=== PATIENT | female | born 1990 | race Caucasian/White ===

== ENCOUNTER 2016-11-13 15:49 | Inpatient (IN) | payer OTHER, MEDICAID ==
[2016-11-13 18:23] LABS: APPEARANCE,URINE SLIGHTLY-CLOUDY; BILIRUBIN,URINE NEGATIVE (NEGATIVE); GLUCOSE, URINE NEGATIVE (NEGATIVE); KETONES,URINE NEGATIVE (NEGATIVE); LEUKOCYTE ESTERASE,URINE TRACE (NEGATIVE); NITRITE,URINE NEGATIVE (NEGATIVE); PROTEIN,URINE NEGATIVE (NEGATIVE); UROBILINOGEN,URINE NEGATIVE mg/dL (<2.0)
[2016-11-13] MEDS ORDERED: RINGERS SOLUTION,LACTATED 1,000 ML IV PRN (18:33)
[2016-11-13 18:38] LABS: URINE BARBITURATES SCREEN NEGATIVE; URINE METHADONE SCREEN NEGATIVE; URINE OPIATES LOW NEGATIVE; URINE PHENCYCLIDINE SCREEN NEGATIVE
[2016-11-13 19:10] LABS: ABSOLUTE BASOPHILS # (AUTO) 0.1 10^3/uL (0.0-0.2); ABSOLUTE EOSINOPHILS # (AUTO) 0.1 10^3/uL (0.0-0.6); ABSOLUTE MONOCYTES (AUTO) 0.8 10^3/uL (0.1-1.4); ABSOLUTE NEUT (AUTO) 13.3 10^3/uL (1.7-8.2); BASOPHILS % (AUTO) 0.7 % (0-2); EOSINOPHILS % (AUTO) 0.5 % (0-6); HEMATOCRIT 34.3 % (36.0-47.0); HEMOGLOBIN 11.8 g/dL (12.0-15.5); HGB HCT DIFFERENCE 1.1; LYMPHOCYTES % (AUTO) 17.2 % (13-45); MEAN CORPUSCULAR HEMOGLOBIN 29.5 pg (27.0-33.4); MEAN CORPUSCULAR HGB CONC 34.4 g/dL (32.0-36.0); MEAN CORPUSCULAR VOLUME 86 fl (80-97); MONOCYTES % (AUTO) 4.7 % (3-13); RED CELL DISTRIBUTION WIDTH 14.2 % (11.5-14.0); SEGMENTED NEUTROPHILS % (AUTO) 76.9 % (42-78); WHITE BLOOD COUNT 17.2 10^3/uL (4.0-10.5)
[2016-11-13] MEDS ORDERED: OXYTOCIN/NORMAL SALINE 20 UNIT/1,000 ML RTUINJ ONE (19:22)
[2016-11-13] MEDS ORDERED: MISOPROSTOL 0.2 MG TABLET ONE (19:22)
[2016-11-13] MEDS ORDERED: LIDOCAINE 1% INJ-PF (10 MG/ML) 30 ML SDV ONE (19:22)
[2016-11-13] MEDS ORDERED: NALBUPHINE HCL INJ 10 MG/1 ML AMPULE INJ ONE (21:19)
[2016-11-13] MEDS ORDERED: ONDANSETRON HCL INJ/PF 4 MG/2 ML SDV IV ONE (21:19)
[2016-11-13] MEDS ORDERED: NALBUPHINE HCL INJ 10 MG/1 ML AMPULE ONE (21:22)
[2016-11-13] MEDS ORDERED: ONDANSETRON HCL INJ/PF 4 MG/2 ML SDV ONE (21:22)
[2016-11-13] MEDS ORDERED: DIPHENHYDRAMINE HCL 50 MG/ML VIAL IV ONE (21:37)
[2016-11-13] MEDS ORDERED: DIPHENHYDRAMINE HCL 50 MG/ML VIAL ONE (21:41)
[2016-11-13] MEDS ORDERED: ACETAMINOPHEN WITH CODEINE #3 TABLET PO PRN ×2 (22:23)
[2016-11-13] MEDS ORDERED: MEASLES,MUMPS&RUBELLA VACC/PF 0.5 ML VIAL SUBCUT PRN (22:23)
[2016-11-13] MEDS ORDERED: ZOLPIDEM TARTRATE 5 MG TABLET PO PRN (22:23)
[2016-11-13] MEDS ORDERED: DIPH/PERTUSS(ACELL)/TETANUS VAC/PF 0.5 ML SYR (>=10YO) IM PRN (22:23)
[2016-11-13] MEDS ORDERED: DIBUCAINE 1% OINTMENT 28 GM TP PRN (22:23)
[2016-11-13] MEDS ORDERED: BENZOCAINE/MENTHOL AEROSOL SPRAY 56 ML TOP PRN (22:23)
[2016-11-13] MEDS ORDERED: OXYTOCIN/NORMAL SALINE 1,000 ML IV PRN (22:23)
--- NOTE | 2016-11-14 00:07 | Delivery Summary ---
Del Sum A-C Datetime Report Generated by CPN: 11/14/2016 00:06 DELIVERY PERSONNEL DELIVERY PERSONNEL: [id number] Delivery Doctor:: Christiane Orellana MD Labor and Delivery Nurse:: Marcelina Connor RN Labor and Delivery Nurse:: Jolene Restrepo RN Ergonomist:: Eugenia Leger RN Nursery Nurse:: Keri Forman RN Licensed Plumber/BUSINESS CONTINUITY STRATEGY DIRECTOR: Yadira Green, ST MATERNAL INFORMATION Delivery Anesthesia: None Medications After Delivery: Pitocin Drip 20 Units/1000ml NSS Meds After Delivery Comment: Pitocin 20 unit bolus Estimated Blood Loss (ml): 200 Maternal Complications: None Other Maternal Complications: meconium Provider Comments: AROM @ [id number] with meconium present LABOR SUMMARY EDC: 11/12/2016 00:00 No. Babies in Womb: 1 Attempted: No Labor Anesthesia: IV Sedation LABOR INFORMATION Reason for Induction: Not Applicable Onset of Labor: 11/13/2016 18:19 Complete Dilatation: 11/13/2016 22:05 Oxytocin: N/A Group B Beta Strep: negative Antibiotics # of Doses: 0 Steroids Given: None Reason Steroids Not Administered: Not Applicable MEMBRANES Membranes Rupture Method: Artificial Rupture of Membranes: 11/13/2016 21:12 Length of Rupture (hr): 0.98 Amniotic Fluid Color: Moderate Meconium Amniotic Fluid Amount: Small Amniotic Fluid Odor: Normal STAGES OF LABOR Stage 1 hr: 3 Stage 1 min: 46 Stage 2 hr: 0 Stage 2 min: 6 Stage 3 hr: 0 Stage 3 min: 3 Total Time in Labor hr: 3 Total Time in Labor min: 55 VAGINAL DELIVERY Episiotomy: None Laceration Extension: N/A Laceration Type: None Sponge Count Correct: N/A Sharps Count Correct: N/A CSECTION DELIVERY Primary Indication: N/A BABY A INFORMATION Infant Delivery Date/Time: 11/13/2016 22:11 Method of Delivery: Vaginal Born in Route : No : N/A Forceps: N/A Vacuum Extraction: N/A Shoulder Dystocia : No PRESENTATION/POSITION BABY A Presentation: Cephalic Cephalic Presentation: Vertex Vertex Position: Left Occipital Anterior Breech Presentation: N/A PLACENTA INFORMATION BABY A Placenta Delivery Time : 11/13/2016 22:14 Placenta Method of Delivery: Spontaneous Placenta Status: Delivered SCORES BABY A Heart Rate 1 min: >100 bpm Resp Effort 1 min: Slow, Irregular Reflex Irritability 1 min: Cough or Sneeze or Pulls Away Muscle Tone 1 min: Some Flexion of Extremities Color 1 min: Blue/Pale Resuscitation Effort 1 min: N/A SCORE 1 MIN: 6 Heart Rate 5 min: >100 bpm Resp Effort 5 min: Good Cry Reflex Irritability 5 min: Cough or Sneeze or Pulls Away Muscle Tone 5 min: Active Motion Color 5 min: Body [place], Extremities Blue Resuscitation Effort 5 min: N/A SCORE 5 MIN: 9 INFORMATION BABY A Gestational Age at Delivery: 40.1 Gestational Status: Full Term- 39- 40.6 Weeks Outcome : Liveborn Infant Condition : Stable Infant Sex: Female IDENTIFICATION BABY A Verification Date/Time: 11/13/2016 22:31 ID Band Number: [id number] Mother's Name Verified: Yes RN Verifying Infant: CYoselin Connor, RN _ S. Richtibeashivaniir, RN WEIGHT/LENGTH BABY A Birthweight (gm): 3427 Infant Weight (lb): 7 Infant Weight (oz): 9 Infant Length (in): 19.50 Length (cm): 49.53 CORD INFORMATION BABY A No. Cord Vessels: 3 Nuchal Cord : Around Neck x1, Loose Cord Blood Taken: Yes-For Eval (Mom's Blood Type - or O+) Suction: Mouth; Nose ASSESSMENT BABY A Complications: Meconium Physical Findings at Delivery: Within Normal Limits Skin to Skin: Yes Skin to Skin Time (min): 60 Assistant Press Operator/ALS Called : No Infant Care By: Trupti Forman RN Transferred To: Remains with Mother BABY B INFORMATION : N/A SIGNATURES Signature: with User ID: [email or web address]
--- NOTE | 2016-11-14 00:34 | Admission Physical ---
Datetime Report Generated by CPN: 11/14/2016 00:33 CURRENT ADMISSION Chief Complaint: Uterine Contractions Indication for Induction: Not Applicable Admit Plan: Admit to Unit; Initiate Labor Augmentation Protocol ALLERGIES Medication Allergies: No Medication Allergies: No Known Allergies (10/30/2011) Latex: No Latex Allergies OBSTETRICAL HISTORY EDC: 11/12/2016 00:00 : 2 Para: 1 Term: 1 : 0 SAB: 0 IAB: 0 Ectopic: 0 Livin Cesareans: 0 VBACs: 0 Multiple Births: 0 Gestational Diabetes: No Rh Sensitization: No Incompetent Cervix: No JANEL: No Infertility: No ART Treatment: No Uterine Anomaly: No IUGR: No Hx Previous C/S: No Macrosomia: No Hx Loss/Stillborn: No PIH: No Hx : No Placenta Previa/Abruption: No Depression/PP Depression: No PTL/PROM: No Post Hemorrhage: No Current Procedures: Ultrasound Obstetrical History Comments: G1- 39wk G2- current SEE RECORDS Alcohol: No Marijuana : No Cocaine: No Other Illicit Drugs: No Cigarettes: Former Smoker. [id number] MEDICAL HISTORY Diabetes: No Blood Transfusion: No Pulmonary Disease (Asthma, TB): No Breast Disease: No Hypertension: No Personalized Living Manager Surgery: No Heart Disease: No Hosp/Surgery: Yes Autoimmune Disorder: No Anesthetic Complications: No Kidney Disease: No Abnormal Pap Smear: No Neuro/Epilepsy: Yes Psychiatric Disorders: No Other Medical Diseases: Yes Hepatitis/Liver Disease: No Significant Family History: No Varicosities/Phlebitis: No Trauma/Violence : No Thyroid Dysfunction: No Medical History Comments: seizure disorder as a child no problems since 9y/o hydrodistention 2005 laparoscopy 2008 childbirth fibromyalgia INFECTIOUS HISTORY Gonorrhea: No Genital Herpes: No Chlamydia: No Tuberculosis: No Syphilis: No Hepatitis: No HIV/AIDS Exposure: No Rash or Viral Illness: No HPV: No PHYSICAL EXAM General: Normal HEENT: Normal Neurologic: Normal Thyroid: Normal Heart: Normal Lungs: Normal Breast: Normal Back: Normal Abdomen: Normal Genitourinary Exam: Normal Extremities: Normal DTRs: Normal Pelvic Type: Adequate Vital Signs: Reviewed VAGINAL EXAM Dilatation: 5 Effacement: 50 Station: -2 MEMBRANES Pooling: Negative Membranes: Intact FETUS A EGA: 40.1 Monitoring: External US FHR- Baseline: 130 Variability: Moderate 6-25bpm Accelerations: 15X15 Decelerations: None FHR Category: Category I Estimated Weight (gm): 3600 Presentation: Vertex PLANS FOR LABOR AND DELIVERY Labor and Delivery: Plan Pain Management: Natural; Medications Feeding Preference: Breast Benefit of Breast Feed Discussed: Yes Circumcision: N/A INFORMED CONSENT Signature: with User ID: [email or web address]
[2016-11-14] MEDS: IBUPROFEN 800 MG TABLET PO SCH ×3 (05:41→21:46)
[2016-11-14] MEDS: PRENATAL VITAMIN W-O CA NO5/FE FUMARATE/FA CAPSULE PO SCH (09:11)
[2016-11-14] MEDS: SENNOSIDES/DOCUSATE 8.6-50 MG 1 EACH TABLET PO SCH (09:11)
[2016-11-14] MEDS: DOCUSATE SODIUM 100 MG CAPSULE PO SCH ×2 (09:11→17:03)
[2016-11-14] MEDS: FERROUS SULFATE 325 MG TABLET PO SCH ×2 (09:11→17:03)
[2016-11-14 09:35] LABS: HEMATOCRIT 30.2 % (36.0-47.0); HEMOGLOBIN 10.2 g/dL (12.0-15.5); HGB HCT DIFFERENCE 0.4; MEAN CORPUSCULAR HEMOGLOBIN 29.6 pg (27.0-33.4); MEAN CORPUSCULAR HGB CONC 33.9 g/dL (32.0-36.0); MEAN CORPUSCULAR VOLUME 88 fl (80-97); RED BLOOD COUNT 3.45 10^6/uL (3.72-5.28); RED CELL DISTRIBUTION WIDTH 14.2 % (11.5-14.0); WHITE BLOOD COUNT 16.4 10^3/uL (4.0-10.5)
[2016-11-15] MEDS: IBUPROFEN 800 MG TABLET PO SCH (06:22)
[2016-11-15 08:25] VITALS: BP 103/65
--- NOTE | 2016-11-15 09:12 | PDOC PROGRESS REPORT ---
Subjective-OB Subjective: Post Delivery Day: 26 year old. Denies any needs at this time. Ready to go home. Physical Exam (OB) Vital Signs: Temp Pulse Resp BP Pulse Ox 98.1 F 83 18 103/65 100 11/15/16 07:31 11/15/16 07:31 11/15/16 07:31 11/15/16 07:31 11/15/16 07:31 Intake & Output 11/14/16 11/15/16 11/16/16 06:59 06:59 06:59 Weight 70.9 kg - Lochia Lochia Amount: Scant < 10 ml Lochia Color: Rubra/Red - Abdomen Description: Tender, Soft Hernia Present: No Bowel Sounds: Normoactive Flatus Presence: Present Stool: No Fundal Description: Firm, Midline Fundal Height: u/u - u/2 Objective-Diagnostic Laboratory: 11/14/16 09:20 11/14/16 09:20 WBC 16.4 H RBC 3.45 L Hgb 10.2 L Hct 30.2 L MCV 88 MCH 29.6 MCHC 33.9 RDW 14.2 H Plt Count 205
--- NOTE | 2016-11-15 09:19 | PDOC DISCHARGE SUMMARY ---
Final Diagnosis Discharge Date: 11/15/16 - Final Diagnosis (1) Delivery normal Is this a current diagnosis for this admission?: Yes (2) History of interstitial cystitis Is this a current diagnosis for this admission?: Yes (3) History of seizures as a child Is this a current diagnosis for this admission?: Yes (4) Personal history of fibromyalgia Is this a current diagnosis for this admission?: Yes (5) Is this a current diagnosis for this admission?: Yes Discharge Data - Discharge Medication Home Medications: Pnv W-O Ca No5/Fe Fumarate/FA [-U Multiple Vitamin Capsule] 1 cap PO DAILY 10/10/11 Ferrous Sulfate [Feosol 325 mg Tablet] 325 mg PO DAILY #30 tablet 11/15/16 Gestational Age: 40.1 wks Reason(s) for Admission: Onset of Labor Procedures: Ultrasound Intrapartum Procedure(s): Spontaneous Vaginal Delivery - [place] Data Baby 1 Female at 1 minute: 6 at 5 minutes: 9 Weight: 3.43 kg Home with Mother: Yes Complications: No - Diagnosis Test Laboratory: Temp Pulse Resp BP Pulse Ox 98.1 F 83 18 103/65 100 11/15/16 07:31 11/15/16 07:31 11/15/16 07:31 11/15/16 07:31 11/15/16 07:31 11/13/16 11/13/16 11/14/16 16:02 18:58 09:20 RBC 4.00 3.45 L Hgb 11.8 L 10.2 L Hct 34.3 L 30.2 L Urine Opiates Screen NEGATIVE - Discharge information/Instructions Discharge Activity: Activity As Tolerated, Balance Activity w/Rest, Pelvic Rest , Slowly Increase Activity, No tub bath Discharge Diet: Regular Disposition: HOME, SELF-CARE Follow up with: [facility] in: 4, Weeks
[2016-11-15] MEDS: FERROUS SULFATE 325 MG TABLET PO SCH (10:09)
[2016-11-15] MEDS: DOCUSATE SODIUM 100 MG CAPSULE PO SCH (10:09)
[2016-11-15] MEDS: SENNOSIDES/DOCUSATE 8.6-50 MG 1 EACH TABLET PO SCH (10:09)
[2016-11-15] MEDS: PRENATAL VITAMIN W-O CA NO5/FE FUMARATE/FA CAPSULE PO SCH (10:10)
== END 2016-11-15 11:26 | disposition home or self-care (01) | DRG 775 ==
LOC: LC 15:49 → LR 18:35 → 2S 11-14 00:30
PROVIDERS: ADMIT Obstetrics & Gynecology; ATTEND Obstetrics & Gynecology
PROC: 10E0XZZ Delivery of Products of Conception, External Approach (ICD-10-PCS; principal; 2016-11-13)
PROC: 10907ZC Drainage of Amniotic Fluid, Therapeutic from Products of Conception, Via Natural or Artificial Opening (ICD-10-PCS; 2016-11-13)
PROC: 3E0234Z Introduction of Serum, Toxoid and Vaccine into Muscle, Percutaneous Approach (ICD-10-PCS; 2016-11-15)
DX: O69.81X0 Labor and delivery complicated by cord around neck, without compression, not applicable or unspecified (principal); O77.0 Labor and delivery complicated by meconium in amniotic fluid; O75.89 Other specified complications of labor and delivery; M79.7 Fibromyalgia; Z3A.40 40 weeks gestation of pregnancy; Z37.0 Single live birth; Z23 Encounter for immunization
CPT/HCPCS: 36415; 80307; 81005; 85025; 85027; 86592; 86850; 86900; 86901; 90715; J1200; J2300; J2405; J2590; J3490